=== PATIENT | female | born 1980 | race Caucasian/White ===

== ENCOUNTER 2016-12-29 10:36 | Emergency (ER) | payer MEDICAID ==
[~2016-12-29] VITALS: Ht 172.7 cm; Wt 77.1 kg
[~2016-12-29 10:36] MED LIST: ALBUTEROL200 PUFFS/ IH; AMOXICILLIN500 M2 PO; BACTRIM DS 8001 TA1 PO; CELEXA10 MG PO; FLEXERIL10 M1 PO; KEFLEX 500MG.500 MG PO; NOMEDS XX; PREDNISONE 20MG20 MG PO; TESSALON PERLE100 M1 PO; TIZANIDINE HCL2 MG PO
--- NOTE | 2016-12-29 10:50 | Emergency Room Report ---
See Addendum History of Present Illness Time Seen by 1048 Presenting Problem in Triage Pt arrived:Walked Presenting Problem:PT ADVISES SHE STARTED HAVING NUBNESS AND TINGLING IN THE LEFT ARM THAT STARTED AROUND 1000. NO OTHER SYMPTOMS AND NO DEFICITS NOTED Onset of symptoms date/time:/ or onset unknown for:MEDICAL HX UNKNOWN Treatment Prior to Arrival: [employer] Provided by: Sepsis Risk Assessment: Temp: 98.7 B/P: 141/90 MAP: 107 Pulse: 98 Resp: 16 Recent fever? N Clinical Suspician of Infection? N Mental Status: 1 - Regular (Normal Baseline) Sepsis Risk:Low Sepsis Risk Have you (or family members/close friends) recently traveled outside the [place]? N If Yes, where/when: Have you had exposure to infectious disease within the past month? N TB? Other? Specify: Patient states yesterday at 11 AM she had visual field defect in her left eye which looked watery and a shimmering appearance like looking through water that lasted about 20 minutes she saw an eye doctor yesterday for it. She then developed at 9 PM of left-sided headache which she states is 7/10 currently achy no radiation and is still present now. She states she's been having some intermittent chest tightness yesterday that was at around 3 PM that lasted about an hour then went away. She states over 10 years ago she had similar chest tightness with a panic attack so thought it may have been a panic attack. She states that now she has 3/10 chest tightness now. She states that she presented to the emergency room because starting at an hour or so prior to arrival she had LEFT arm complete numbness likely couldn't feel anything in her hand or her forearm. He denied any RIGHT sided numbness. No leg or face numbness. Comment staff relate patient refusing CT head, dw patient, agrees to CT head. CHEST(2 VIEWS-NOT PORTABLE) HISTORY: chest pain ORDERING PHYSICIAN: Mike Johnson MD PATIENT AGE: 36 years COMPARISON: 06/02/2016 FINDINGS: The cardiomediastinal silhouette and pulmonary vascularity are within normal limits. The lungs are clear without infiltrates, suspicious nodules, or pleural effusions. No acute bony abnormalities. IMPRESSION: Negative chest, no acute finding <Electronically signed by Severo Crump MD in OV> 12/29/[address] head NAD per radiologist 1241 staff relate patient refuses medicine. ALLERGIES Coded Allergies: No Known Allergies (06/23/16) Home Medications Reported Medications No Known Home Medications History Medical History General CAD? No Angina: No [place]: No Hypertension? No Hyperlipidemia? No CHF? No DVT? No PE? No COPD? No Asthma? No Anemia? No GERD? No Gastric ulcers? No GI Bleed? No Hernia? No Thyroid Problems? No Hypothyroidism? No CVA? No Seizures? No Diabetes? No Renal Insuffiency? No End Stage Renal Disease? No UTI? No Stones? No BPH? No GB Disease: No Nephritic Syndrome? No Asplenia? No Hepatitis? No Sickle Cell Disease? No Arthritis? No Migraines? No Cataracts? No Glaucoma? No MRSA? No HIV? No TB? No Anxiety? Yes Depression? Yes Cancer? 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 Eyes: conjunctiva/corneas clear ENT: Mucous membranes moist. Neck: No jugular venous distention. Cardiac: regular rate and rhythm Lungs: Clear to auscultation bilaterally Abdomen: Nontender, Nondistended, positive bowel sounds, no rebound : No CVA tenderness Extremities: no edema Musculoskeletal: No chest wall tenderness Skin: No rashes or lesions to exposed skin. Neurologic: Alert and oriented x3 Cranial nerves intact Strength 5 out of 5 Sensation intact to light touch holds both legs off the bed without drift Finger to nose intact Psychiatric: Normal affect (Alex RIVERA, Mike) General Appearance normal appearance Respiratory Status No: respiratory distress. Cardiovascular normal exam Neurologic alert Medical Decision Making LABS/Meds/Orders Pt receiving controlled substance in ED? No Comment Patient does not appear to be a candidate for TPA she symptoms started yesterday with left-sided visual field defect and she also has a left-sided headache which brings up the possibility of migraine especially with a shimmering visual defect yesterday. Currently her stroke scale is negative 1248 dw patient risk of stroke is paralysis, etc, dw migraine headache, Multiple Sclerorsis, other. I discussed I had a call out to [facility], pt states she thinks it is just stress. she does not desire admission. 1242 workup unremarkable. will discuss with PMD. migraine variant, cva/tia although young, MS, other in differential 111pm rylee Mix at [facility] office, they state is not actually a patient of theirs and to call service. Awaiting Arley callback. 117pm rylee Tubbs, he states patient does not need admission. he has reviewed my note. states outpatient followup with Jeet Allen Results/Orders Laboratory Tests 12/29/16 1150: Opiates Screen NEGATIVE, Urine Methadone Screen NEGATIVE, Barbiturates NEGATIVE, Phencyclidine Screen NEGATIVE, Amphetamines Screen NEGATIVE, Benzodiazepines Screen NEGATIVE, Cocaine Screen NEGATIVE, Marijuana (THC) Screen POSITIVE H, Urine Color SHERIE, Urine Appearance TURBID, Urine pH 6.0, Ur Specific [place] 1.020, Urine Protein NEGATIVE, Urine Ketones NEGATIVE, Urine Blood 3+ H, Urine Nitrate NEGATIVE, Urine Bilirubin NEGATIVE, Urine Urobilinogen 0.2, Ur Leukocyte Esterase NEGATIVE, Urine RBC TNTC, Urine WBC OCC, Ur Squamous Epith Cells 5-10, Urine Bacteria TRACE, Urine Glucose NEGATIVE 12/29/16 1120: Creatine Kinase 96, CK-MB (CK-2) Rel Index 0.5, CK and CKMB Interp < 0.5, Troponin I < 0.02, TSH 2.06 12/29/16 1120: Sodium 138, Potassium 3.9, Chloride 101, Carbon Dioxide 26, BUN 10, Creatinine 0.5 L, Estimated Creat Clear 189, Estimated GFR (MDRD) 140, Glucose 92, Calcium 8.6, Total Bilirubin 0.3, AST 21, ALT 25, Alkaline Phosphatase 74, Total Protein 7.2, Albumin 3.8, Globulin 3.4 H, Albumin/Globulin Ratio 1.1, WBC 5.7, RBC 4.82 , Hgb 15.0, Hct 45.1, MCV 93.6, RDW 12.9, Plt Count 253, MPV 6.0 L, Gran % 62.9 , Gran # 3.6, Lymphocytes % 31.5, Monocytes % 4.2, Eosinophils % 1.1, Basophils % 0.4, Lymphocytes # 1.8, Monocytes # 0.2, Eosinophils # 0.1, Basophils # 0.0, PUBS MCHC 33.2, MCH 31.0, Alcohols 0 Current Medication Orders Sig/Georiga Start time Last Medication Dose Route Stop Time Status Admin Sodium Chloride 10 ML PRN PRN 12/29 1145 AC IV 12/30 1139 Diphenhydramine HCl 0 .STK-MED ONE 12/29 1144 DC .ROUTE Sodium Chloride 1,000 ML .STK-MED ONE 12/29 1144 DC IV Metoclopramide HCl 0 .STK-MED ONE 12/29 1143 DC .ROUTE Diagnostic Test (Pha) 1 EACH ONCE ONE 12/29 1115 CAN FS 12/29 1116 Diphenhydramine HCl 12.5 MG 12/29 1115 CAN IV Diphenhydramine HCl 12.5 MG ONCE ONE 12/29 1115 DC IV 12/29 1116 Metoclopramide HCl 10 MG ONCE ONE 12/29 1115 DC IVP 12/29 1116 Sodium Chloride 1,000 ML .Q1H1M 12/29 1115 DC 12/29 IV 12/29 1301 1148 Sodium Chloride 10 ML PRN PRN 12/29 1115 AC IV 12/30 1102 Orders Procedure Date/time Status DIET-NOTHING BY MOUTH 12/29 D Active IV SALINE LOCK 12/29 1139 Active URINE 12/29 1105 Complete ELECTROCARDIOGRAM REQUEST 12/29 1104 Active PULSE OXIMETRY REQUEST 12/[address] HEAD REQ 12/29 1104 Complete OXYGEN PER NURSE 12/29 1104 Active WHISTLE PUNK 12/29 1104 Active URINALYSIS/COMPLETE 12/29 1104 Complete THYROID STIMULATING HORMONE 12/29 1104 Complete DRUG ABUSE SCREEN (TRIAGE) 12/29 1104 Complete COMPLETE METABOLIC PANEL 12/29 1104 Complete CBC WITH AUTO DIFF 12/29 1104 Complete CARDIAC ENZYMES 12/29 1104 Complete ALCOHOL 12/29 1104 Complete 12 LEAD EKG-BESSON (INITIAL) 12/29 UNK Active 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 Rhythm Normal Sinus Rhythm Rate 73 Ectopy No Comments normal Departure Departure Time of Disposition 1318 Disposition DC Home or Self Care(routine) Clinical Impression Primary Impression: Headache Qualifiers: Headache type: unspecified Headache chronicity pattern: acute headache Intractability: not intractable Qualified Code: R51 - Headache Secondary Impressions: Anxiety Chest pain Qualifiers: Chest pain type: unspecified Qualified Code: R07.9 - Chest pain, unspecified Left arm numbness Condition STABLE Referrals Jose A Arthur: Today after leaving ER [facility] RIVERA,Piyush Kaplan (PCP/Family) Patient Instructions DI for Chest Pain, DI for Headache, DI for Numbness/ tingling Additional Instructions Return if any numbness or weakness returns. We have offered admission. call Dr. Arthur for followup and recheck, you may call [facility] as well but they state they do not take your insurance. return to ER immediately if symptoms worsens or any problems whatsoever Prescriptions Current Visit Scripts BUTALB/ACETAMINOPHEN/CAFFEINE (Fioricet 50-300-40 MG Capsule) 1 CAP PO Q6HP PRN HEADACHE 7 Days ED Critical Care Critical Care No at [id number]
[2016-12-29 11:26] LABS: LYMPH # 1.8 K/mm3 (0.7-4.5); LYMPH % 31.5 % (10-50.0)
[2016-12-29 12:00] LABS: URINE BILIRUBIN - DIPSTICK NEGATIVE (NEG); URINE BLOOD 3+ (NEG)
[2016-12-29 12:08] LABS: AMPHETAMINES/METAMPHETAMINES NEGATIVE ng/mL (<1000)
--- NOTE | 2016-12-29 12:11 | RADIOLOGY REPORT PS360 ---
CT HEAD W/O CONTRAST HISTORY: HEADACHE ORDERING PHYSICIAN: Mike Johnson MD PATIENT AGE: 36 years COMPARISON: 06/26/2013 TECHNIQUE: Axial images obtained without contrast. Brain and bone windows reviewed. FINDINGS: No midline shift, mass effect, intracranial hemorrhage, hydrocephalus, or extra-axial fluid collection is evident. The calvarium has an unremarkable appearance. No mastoid effusion. The visualized paranasal sinuses are unremarkable. IMPRESSION: Negative CT head without contrast. No acute finding.
--- NOTE | 2016-12-29 12:11 | RADIOLOGY REPORT PS360 ---
CHEST(2 VIEWS-NOT PORTABLE) HISTORY: chest pain ORDERING PHYSICIAN: Mike Johnson MD PATIENT AGE: 36 years COMPARISON: 06/02/2016 FINDINGS: The cardiomediastinal silhouette and pulmonary vascularity are within normal limits. The lungs are clear without infiltrates, suspicious nodules, or pleural effusions. No acute bony abnormalities. IMPRESSION: Negative chest, no acute finding
[2016-12-29] MEDS ORDERED: FIORICET1 CAP PO (13:24)
[2016-12-29 13:31] VITALS: BP 145/61
== END 2016-12-29 13:38 | disposition home or self-care (01) ==
LOC: ER 10:36
PROVIDERS: Emergency Medicine
DX: R51 Headache (principal); R07.9 Chest pain, unspecified; R20.0 Anesthesia of skin
CPT/HCPCS: G6040

== ENCOUNTER → 2017-07-29 | Emergency (ER) | payer MEDICAID ==
[~2017-07-29] VITALS: Ht 172.7 cm; Wt 95.3 kg
[~2017-07-29] MED LIST changes: +FIORICET1 CAP PO
[2017-07-29 13:51] VITALS: BP 131/89
--- NOTE | 2017-07-29 14:25 | Urgent Treatment Center Report ---
History of Present Issue Date/Time Seen by Provider 07/29/17 1421 Visit Reason Pt arrived:Walked Presenting Problem:PT STATES THAT SHE WAS ON VACATION IN [place] ATE A MEDIUM RARE STEAK AND HAS HAD N/V/D, CRAMPING, UNUSUAL BURPS FOR 4 DAYS. FEELS THOUGH SHE FEELS THOUGH SHE IS NOT DIGESTING FOOD AND POSSIBLY THINKS SHE GIARDIA PARASITE. Location if Accident: Onset of symptoms date/time:/ or onset unknown for:MEDICAL HX UNKNOWN Have you (or family members/close friends) recently traveled outside the [place]? N If Yes, where/when: Have you had exposure to infectious disease within the past month? TB? Other? Specify: Source patient, RN notes reviewed Exam Limitations no limitations Comment 36-year-old female presents for abdominal cramping, nausea vomiting diarrhea, and foul-smelling belching for 4 days. Patient states she was on vacation in [place] and a medium rare steak and since then has had all of these symptoms. Patient states she googled symptoms and thinks she might have a parasite ALLERGIES Coded Allergies: No Known Allergies (06/23/16) Home Medications Active Scripts BUTALB/ACETAMINOPHEN/CAFFEINE (Fioricet 50-300-40 MG Capsule) 1 CAP PO Q6HP PRN HEADACHE 7 Days Prov: 12/29/16 History Medical History General CAD? No Angina: No [place]: No Hypertension? No Hyperlipidemia? No CHF? No DVT? No PE? No COPD? No Asthma? No Anemia? No GERD? No Gastric ulcers? No GI Bleed? No Hernia? No Thyroid Problems? No Hypothyroidism? No CVA? No Seizures? No Diabetes? No Renal Insuffiency? No UTI? No Stones? No BPH? No GB Disease: No Nephritic Syndrome? No Asplenia? No Hepatitis? No Sickle Cell Disease? No Arthritis? No Migraines? No Cataracts? No Glaucoma? No MRSA? No HIV? No TB? No Anxiety? Yes Depression? Yes Cancer? No More? No Immunization HX DT/Tetanus Unknown Surgical Hx Previous Surgery?Y APPENDECTOMY TUMOR UNDER L ARM Family History Family HX CAD No Hypertension Yes Social History Smoking Hx Smoker: Former Smoker Tobacco: No Packs/day 1 1/2 - 2 Packs Alcohol Alcohol: Yes Review of Systems All Other Systems Reviewed and Negative Gastrointestinal see HPI, abdominal pain, diarrhea, nausea, vomiting Physical Exam Vital Signs Vital Signs Date Time Temp Pulse Resp B/P Pulse O2 O2 Flow FiO2 Ox Delivery Rate 07/29 1351 98.9 98 20 131/89 99 - WBC >12,000 or <4,000 or 10% bands? 2 or more SIRS Criteria Met? B/P:131/89 MAP:103 Creatinine >2.0? UA output<0.5ml/kg/hr for 2 hrs? Platelet count >100,000? Lactate >2.0mmol/1? INR >1.2 or PTT > than 60 sec? Evidence of Organ Dysfunction? Provider documented clinical suspician of infection? Sepsis Criteria Count: 2 Sepsis Risk: General Appearance normal appearance, WD/WN, no apparent distress Respiratory Status Yes: trachea midline, chest symmetrical, non tender chest. No: respiratory distress. Lung Sounds bilateral: normal breath sounds, lungs clear. Cardiovascular normal exam, regular rate/rhythm Gastrointestinal normal bowel sounds, normal exam, non tender, soft Neurologic alert, normal exam, oriented x 3 Medical Decision Making LABS/Meds/Orders Pt receiving controlled substance in ED? No Results/Orders Laboratory Tests 07/29/17 1417: Stl Aeromonas (PCR) Pending, Stl Cyclospora species Pending, Stool Rotavirus ( PCR) Pending, Stool Astrovirus (PCR) Pending, Stool Campylobacter PCR Pending, Stool Cryptosporidium PCR Pending, Stl E. histolytica PCR Pending, Stool Giardia Lamblia PCR Pending, Stl P. shigelloides PCR Pending, Stool Sapovirus (PCR) Pending, Stool Vibrio (PCR) Pending, Stl Vibrio cholerae PCR Pending, Stl Norovirus GI/GII PCR Pending, Adenovirus (PCR) Pending, C. difficile Tox (PCR) Pending, E. coli (PCR) Pending, Salmonella (PCR) Pending, Yersinia (PCR) Pending Orders Procedure Date/time Status OVA AND PARASITE EXAM 07/29 141 Active DIARRHEA PANEL, PCR 07/29 1416 Active Progress [facility] [[email or web address]] Progress Notes Date 07/29/17 Time 1442 Comment stool sent to lab not enough waiting for new stool Departure Departure Time of Disposition 1449 Disposition Against Medical Advice Clinical Impression Primary Impression: Abdominal cramping Condition STABLE Referrals Zohra RIVERA,Piyush Kaplan (Family) Patient Instructions Acute Abdominal Pain, [place] Diet Additional Instructions Follow-up with PCP this week Encourage fluids Rohit diet Symptoms worsen or do not improve return or be seen in the ER Discharge Counseling Counseled pt/family regarding diagnosis, test results, medications/RX, home care, follow up needs Comments Patient was questioning if she can have treatment without having a stool culture because "she had a parasite lip and inside of her stomach". I talked with the patient on need in the stool so we can know what we were treating,patient LEFT without giving stool AMA. at [id number]
== END ==
LOC: UTC 13:30
DX: R10.9 Unspecified abdominal pain (principal); Z53.21 Procedure and treatment not carried out due to patient leaving prior to being seen by health care provider; Z87.891 Personal history of nicotine dependence

== ENCOUNTER → 2017-07-30 | Outpatient (CLI) | payer MEDICAID ==
[2017-07-30 17:07] LABS: AEROMONAS NOT DETECTED (NOT DETECTE); ASTROVIRUS NOT DETECTED (NOT DETECTE); CYCLOSPORA CAYETANENSIS NOT DETECTED (NOT DETECTE); E COLI O157 NOT DETECTED (NOT DETECTE); ENTEROAGGREGATIVE E COLI NOT DETECTED (NOT DETECTE); ENTEROPATHOGENIC E COLI NOT DETECTED (NOT DETECTE); ENTEROTOXIGENIC E COLI NOT DETECTED (NOT DETECTE); NOROVIRUS NOT DETECTED (NOT DETECTE); SAPOVIRUS NOT DETECTED (NOT DETECTE); SHIGA-LIKE TOXIN PROD. E COLI NOT DETECTED (NOT DETECTE); SHIGELLA/ENTEROINVASIVE E COLI NOT DETECTED (NOT DETECTE); VIBRIO CHOLERAE NOT DETECTED (NOT DETECTE)
== END ==
LOC: LAB 17:06
PROVIDERS: Physician Assistant
DX: R19.7 Diarrhea, unspecified (principal)

== ENCOUNTER → 2017-08-17 | Outpatient (CLI) | payer MEDICAID ==
[2017-08-17 11:12] LABS: HEMOGLOBIN 14.2 g/dL (12.2-16.2); LYMPH % 31.3 % (10-50.0)
[2017-08-17 12:30] LABS: BUN 13 mg/dL (7-18)
[2017-08-17 12:34] LABS: GFR (ESTIMATED) 140 ML/MIN (59-)
== END ==
LOC: LAB 10:27
PROVIDERS: Nurse Practitioner Family
DX: E55.9 Vitamin D deficiency, unspecified (principal)